=== PATIENT | male | born 1980 | race Caucasian/White ===

== ENCOUNTER 2016-12-25 09:46 | Emergency (ER) | payer SELFPAY ==
[~2016-12-25] VITALS: Ht 177.8 cm; Wt 68.0 kg
[2016-12-25 09:47] VITALS: BP 121/76; PULSE 110; RESP 20; TEMP 100.5; O2SAT 100
[2016-12-25] MEDS ORDERED: SODIUM CHLOR 0.9% 1000 ML INJ 1,000 ML IV ONE (10:45)
[2016-12-25] MEDS ORDERED: IBUPROFEN 800 MG TAB PO ONE (10:45)
[2016-12-25] MEDS ORDERED: SODIUM CHLORIDE 0.9% FLUSH 10 ML FLUSH IVF PRN ×2 (10:45→11:45)
--- NOTE | 2016-12-25 11:04 | RADRPT ---
EXAM DATE/TIME: 12/25/2016 10:56 [place] COMPARISON: No previous studies available for comparison. INDICATIONS : Sore throat with difficulty swallowing x2 days. MEDICAL HISTORY : None. SURGICAL HISTORY : None. ENCOUNTER: Initial ACUITY: 2 days PAIN SCORE: 7/10 LOCATION: Bilateral throat. FINDINGS: Two view examination of the soft tissues of the neck demonstrates the hypopharyngeal airway to have a grossly normal configuration. The trachea is midline. No radiopaque foreign bodies are seen. CONCLUSION: Normal examination. Nic Senior MD on December 25, 2016 at 11:02 Board Certified Radiologist. This report was verified electronically.
--- NOTE | 2016-12-25 11:09 | PD ---
HPI Chief Complaint: ENT Complaint Time Seen by Provider: 10:34 Travel History International Travel<30 days: No Contact w/Intl Traveler<30days: No Traveled to known affect area: No History of Present Illness HPI This is a 36-year-old gentleman with no past medical history, who presents today with complaints of left ear pain and left throat pain with fevers and chills. Patient states that 30 hours ago he started experiencing some discomfort in his ear. He states that when he bites down or tries to swallow he feels pain in his ear and in his throat. He reports positive fevers and chills. He reports body aches. He denies any nausea vomiting diarrhea. Patient also reports that his urine has been more frequent than normal. He denies any dysuria. PFSH Past Medical History Medical History: Denies Significant Hx Diminished Hearing: No Tetanus Vaccination: > 5 Years Influenza Vaccination: No Past Surgical History Surgical History: No Previous Surgery Social History Alcohol Use: No Tobacco Use: Yes (1/2 pack per day) Substance Use: No Allergies-Medications (Allergen,Severity, Reaction): Coded Allergies: No Known Allergies (Unverified , 12/25/16) Reported Meds & Prescriptions Reported Meds & Active Scripts Active Ibuprofen 600 Mg Tab 600 Mg PO TID Penicillin V Potassium 500 Mg Tab 500 Mg PO BID Review of Systems Except as stated in HPI: all other systems reviewed are Neg General / Constitutional: Positive: Fever, Chills HENT: Positive: Sore Throat (left), Ear Discharge (left), Other (left neck lymph node pain.), No: Headaches, Neck Stiffness, Neck Pain Cardiovascular: No: Chest Pain or Discomfort, Palpitations Respiratory: No: Cough, Shortness of Breath Gastrointestinal: No: Nausea, Vomiting, Abdominal Pain Genitourinary: Positive: Frequency, No: Dysuria Musculoskeletal: Positive: Myalgias, No: Weakness, Pain Skin: No Rash, No Itching Neurologic: No: Weakness, Dizziness, Headache, Change in Mentation Physical Exam Narrative GENERAL: Developed well-nourished gentleman in no acute respiratory distress. SKIN: Focused skin assessment warm/dry. HEAD: Atraumatic. Normocephalic. EYES: No scleral icterus. No injection or drainage. ENT: No nasal bleeding or discharge. Mucous membranes pink and moist. Patient had erythema in the posterior pharynx. Uvula was midline and palates were symmetrical. TMs were clear bilaterally. NECK: Trachea midline. No JVD. Shotty lymphadenopathy in the bilateral submandibular lymph nodes. CARDIOVASCULAR: Regular rate and rhythm. No murmur appreciated. RESPIRATORY: No accessory muscle use. Clear to auscultation. Breath sounds equal bilaterally. GASTROINTESTINAL: Abdomen soft, non-tender, nondistended. Hepatic and splenic margins not palpable. MUSCULOSKELETAL: No obvious deformities. No clubbing. No cyanosis. No edema. NEUROLOGICAL: Awake and alert. No obvious cranial nerve deficits. Motor grossly within normal limits. Normal speech. PSYCHIATRIC: Appropriate mood and affect; insight and judgment normal. Data Data Last Documented VS Vital Signs Date Time Temp Pulse Resp B/P Pulse Ox O2 Delivery O2 Flow Rate FiO2 12/25/16 10:05 17 12/25/16 09:47 100.5 110 121/76 100 Room Air Orders Basic Metabolic Panel (Bmp) (12/25/16 10:34) Complete Blood Count With Diff (12/25/16 10:34) Group A Rapid Strep Screen (12/25/16 10:34) Soft Tissue Neck (12/25/16 10:34) Iv Access Insert/Monitor (12/25/16 10:34) Sodium Chloride 0.9% Flush (Ns Flush) (12/25/16 10:45) Influenzae A/B Antigen (12/25/16 10:34) Sodium Chlor 0.9% 1000 Ml Inj (Ns 1000 M (12/25/16 10:45) Ibuprofen (Motrin) (12/25/16 10:45) Dexamethasone Inj (Decadron Inj) (12/25/16 11:45) Sodium Chloride 0.9% Flush (Ns Flush) (12/25/16 11:45) Labs Laboratory Tests Test 12/25/16 10:40 White Blood Count 16.5 TH/MM3 Red Blood Count 4.66 MIL/MM3 Hemoglobin 14.0 GM/DL Hematocrit 41.6 % Mean Corpuscular Volume 89.2 FL Mean Corpuscular Hemoglobin 30.1 PG Mean Corpuscular Hemoglobin 33.8 % Concent Red Cell Distribution Width 12.6 % Platelet Count 141 TH/MM3 Mean Platelet Volume 8.1 FL Neutrophils (%) (Auto) 83.1 % Lymphocytes (%) (Auto) 8.4 % Monocytes (%) (Auto) 8.3 % Eosinophils (%) (Auto) 0.0 % Basophils (%) (Auto) 0.2 % Neutrophils # (Auto) 13.7 TH/MM3 Lymphocytes # (Auto) 1.4 TH/MM3 Monocytes # (Auto) 1.4 TH/MM3 Eosinophils # (Auto) 0.0 TH/MM3 Basophils # (Auto) 0.0 TH/MM3 CBC Comment DIFF FINAL Differential Comment Sodium Level 139 MEQ/L Potassium Level 4.2 MEQ/L Chloride Level 103 MEQ/L Carbon Dioxide Level 28.5 MEQ/L Anion Gap 8 MEQ/L Blood Urea Nitrogen 11 MG/DL Creatinine 0.92 MG/DL Estimat Glomerular Filtration 94 ML/MIN Rate Random Glucose 108 MG/DL Calcium Level 9.3 MG/DL MDM Medical Decision Making Medical Screen Exam Complete: Yes Emergency Medical Condition: Yes Differential Diagnosis Viral syndrome versus strep throat versus influenza versus peritonsillar abscess Narrative Course 36-year-old male presents with sore throat, fevers, chills, left ear pain. The patient has positive strep by throat swab. He was given 800 mg of Motrin. He' ll of prescription for Pen-Vee K 500 mg twice daily 10 days. He'll also have a prescription for Motrin 600 mg 3 times daily total #5 days. He's been given 10 mg of IV Decadron. He has no asymmetry of his peritonsillar palate. He is instructed return of he feels worse. Diagnosis Primary Impression: Acute streptococcal pharyngitis Additional Instructions: Warm salt gargles. Return if worsening pain, difficulty breathing. Med/Other Pt SpecificInfo: Prescription(s) given Scripts Ibuprofen 600 Mg [id number] Mg PO TID #15 TAB Ref 0 Prov:Juan Carlos Dove MD 12/25/16 Penicillin V Potassium 500 Mg [id number] Mg PO BID #20 TAB Ref 0 Prov:Juan Carlos Dove MD 12/25/16 Disposition: LEFT WITHOUT BEING SEEN Juan Carlos Dove MD December 25, 2016 11:08
[2016-12-25 11:11] LABS: AUTOMATED NEUTROPHIL # 13.7 TH/MM3 (1.8-7.7); BASOPHIL % 0.2 % (0.0-2.0); HEMATOCRIT 41.6 % (39.0-51.0); HEMO FLAGS DIFF FINAL; LYMPH % 8.4 % (9.0-44.0); LYMPHOCYTE # 1.4 TH/MM3 (1.0-4.8); MEAN CELL VOLUME 89.2 FL (80.0-100.0); MEAN CORPUSCULAR HEMOGLOBIN 30.1 PG (27.0-34.0); MEAN CORPUSCULAR HGB CONC 33.8 % (32.0-36.0); MONO % 8.3 % (0.0-8.0); NEUT % 83.1 % (16.0-70.0); PLATELET COUNT 141 TH/MM3 (150-450); RED BLOOD COUNT 4.66 MIL/MM3 (4.50-5.90); RED CELL DISTRIBUTION WIDTH 12.6 % (11.6-17.2); WHITE BLOOD COUNT 16.5 TH/MM3 (4.0-11.0)
[2016-12-25 11:21] LABS: BICARBONATE 28.5 MEQ/L (21.0-32.0); POTASSIUM 4.2 MEQ/L (3.5-5.1)
[2016-12-25 11:40] VITALS: RESP 17
[2016-12-25] MEDS ORDERED: IBUP-232 PO (11:40)
[2016-12-25] MEDS ORDERED: PENI500T PO (11:40)
[2016-12-25] MEDS ORDERED: DEXAMETHASONE SOD PHOS 4 MG/ML VIAL IV ONE (11:45)
[2016-12-25 11:54] VITALS: BP 120/78; TEMP 97.8
== END 2016-12-25 11:54 | disposition home or self-care (01) ==
LOC: NEPC 09:46
DX: J02.0 Streptococcal pharyngitis (principal); B95.0 Streptococcus, group A, as the cause of diseases classified elsewhere; F17.210 Nicotine dependence, cigarettes, uncomplicated
CPT/HCPCS: 70360; 80048; 85025; 87804; 87880; 96361; 96374; 99284; J1100; J7030

== ENCOUNTER 2017-05-10 20:21 | Emergency (ER) | payer SELFPAY ==
[~2017-05-10] VITALS: Ht 175.3 cm; Wt 68.0 kg
[~2017-05-10 20:21] MED LIST: BUPR150XL PO; IBUP-232 PO; PENI500T PO
[2017-05-10 20:22] VITALS: BP 133/82; PULSE 78; RESP 16; TEMP 99.1; O2SAT 98
[2017-05-10] MEDS ORDERED: HYDR50TA94 PO (21:49)
[2017-05-10] MEDS ORDERED: PRED10PA2 PO (21:49)
--- NOTE | 2017-05-10 21:50 | PD ---
HPI . Rash Chief Complaint: Skin Problem Time Seen by Provider: 21:33 Travel History International Travel<30 days: No Contact w/Intl Traveler<30days: No Traveled to known affect area: No History of Present Illness HPI This patient presents with a pruritic rash. Onset was weak. It is spreading. He states that this started on his forearms and has spread to his entire body. It is very pruritic. It has been unresponsive to rubbing alcohol and various creams used for poison jude. No exacerbating factor. The rash is severe. PFSH Past Medical History Medical History: Denies Significant Hx Diminished Hearing: No Past Surgical History Surgical History: No Previous Surgery Social History Alcohol Use: No Tobacco Use: Yes (5 CIGS &1 CAN SNUFF DAILY) Substance Use: No Allergies-Medications (Allergen,Severity, Reaction): Coded Allergies: No Known Allergies (Unverified , 05/10/17) Reported Meds & Prescriptions Reported Meds & Active Scripts Active Wellbutrin Xl 24 HR (Bupropion HCl) 150 Mg Tab 150 Mg PO DAILY Ibuprofen 600 Mg Tab 600 Mg PO TID Penicillin V Potassium 500 Mg Tab 500 Mg PO BID Review of Systems Except as stated in HPI: all other systems reviewed are Neg Skin: Positive Rash Physical Exam Narrative GENERAL: Awake and alert and in no acute distress. SKIN: He has a rash on the form status consistent with poison jude. Scattered papules. Some of the rash on the rest of the body also looks like scattered papules but some of it is also urticarial. HEAD: Normocephalic/atraumatic. EYES: Pupils are equal. Extraocular movements are intact. NECK: Full range of motion without pain. CARDIOVASCULAR: Regular rate and rhythm. RESPIRATORY: Nonlabored. MUSCULOSKELETAL: Atraumatic. NEUROLOGICAL: Nonfocal. PSYCHIATRIC: Appropriate mood and affect. Data Data Last Documented VS Vital Signs Date Time Temp Pulse Resp B/P (MAP) Pulse Ox O2 Delivery O2 Flow Rate FiO2 05/10/17 20:22 99.1 78 16 133/82 (99) 98 Room Air MDM Medical Decision Making Medical Screen Exam Complete: Yes Emergency Medical Condition: Yes Differential Diagnosis The differential diagnosis of the skin rash includes but is not limited to allergic urticaria, scabies, insect bites, contact dermatitis Narrative Course This patient presents with a pruritic rash. It is probably a contact dermatitis but it does have some features of urticaria. Nonetheless, he will be treated with steroids and an antihistamine. Diagnosis Primary Impression: Rash Patient Instructions: Acute Rash (DC), General Instructions Additional Instructions: Avoid heat. Cool compresses may make it feel better. Med/Other Pt SpecificInfo: Prescription(s) given Scripts Hydroxyzine HCl (Hydroxyzine HCl) 50 Mg Tab 50 MG PO QID Y for itching, #60 TAB 0 Refills Prov: Maureen Camargo MD 05/10/17 Prednisone (48) 10 mg tab Dose Pack (Prednisone (48) 10 mg tab Dose Pack) 10 Mg Dspk 10 MG PO DIRECTED for Inflammation, #1 DSPK 0 Refills Prov: Maureen Camargo MD 05/10/17 Disposition: 01 DISCHARGE HOME Condition: Stable Maureen Camargo MD May 10, 2017 21:50
[2017-05-10] MEDS ORDERED: hydrOXYzine HCL 50 MG TAB PO ONE (22:00)
[2017-05-10] MEDS ORDERED: predniSONE 20 MG TAB PO ONE (22:00)
== END 2017-05-10 22:15 | disposition home or self-care (01) ==
LOC: NEPD 20:21
DX: R21 Rash and other nonspecific skin eruption (principal)
CPT/HCPCS: 99284